=== PATIENT | female | born 1970 | race Caucasian/White ===

== ENCOUNTER → 2017-05-19 | Outpatient (CLI) | payer BC | LOC: BMCIMAGING 07:13 | PROVIDERS: ATTEND Internal Medicine | DX: R60.0 Localized edema (principal) ==

== ENCOUNTER → 2017-06-29 | Outpatient (CLI) | payer BC | LOC: BMCIMAGING 10:39 | PROVIDERS: ATTEND Internal Medicine | DX: R07.89 Other chest pain (principal); J90 Pleural effusion, not elsewhere classified; D69.6 Thrombocytopenia, unspecified; R07.81 Pleurodynia ==

== ENCOUNTER → 2017-10-13 | Outpatient (CLI) | payer BC | LOC: FIMAGING 09:35 | PROVIDERS: ATTEND Internal Medicine | DX: Z12.31 Encounter for screening mammogram for malignant neoplasm of breast (principal) | CPT/HCPCS: G0202 ==

== ENCOUNTER → 2018-10-16 | Outpatient (CLI) | payer BC | LOC: FIMAGING 10:05 | PROVIDERS: ATTEND Internal Medicine | DX: Z12.31 Encounter for screening mammogram for malignant neoplasm of breast (principal) ==